=== PATIENT | female | born 1960 | race Caucasian/White ===

== ENCOUNTER 2018-01-09 08:50 | Emergency (ER) | payer BC ==
[~2018-01-09] VITALS: Ht 157.5 cm; Wt 104.3 kg
--- NOTE | ~2018-01-09 | EKG ---
[address] [address] [place] [address] ELECTROCARDIOGRAM REPORT Name: KANDI MARTELENE Bridget Room #: [facility]P [facility]#: [id number] Admission: 01/09/18 Attend Phys: Discharge: 01/09/18 Date of : 64 Report #: [id number] THIS REPORT FOR: //name// [facility] ED Test Date: 2018-01-09 Test Time: 10:22:59 Pat Name: NIKKI MARTE Department: Room: Gender: F [employer]: [facility] : 1960 Requested By: Myra Dick Order Number: [id number] MD: Andrei Dobbs Measurements Intervals [place] Rate: 87 P: 44 WY: 165 QRS: -6 QRSD: 104 T: 15 QT: 410 QTc: 494 Interpretive Statements Sinus rhythm Ventricular ectopics unifocal frequent Early transition Non specific ST/T wave changes No previous ECG available for comparison Electronically Signed On 01-09-2018 13:05:32 [employer] by Andrei Dobbs [email or web address] <ELECTRONICALLY SIGNED> By: Andrei Dobbs MD 01/09/18 1305 1022 [facility] Andrei Dobbs MD /ROBERT
[2018-01-09] MEDS ORDERED: ESTRADIOL 1 MG T1 M1 PO (09:23)
[2018-01-09] MEDS ORDERED: EFFEXOR XR37.5 MG PO (09:23)
[2018-01-09] MEDS ORDERED: PROGESTERONE100 MG PO (09:23)
[2018-01-09] MEDS ORDERED: METFORMIN HCL500 MG PO (09:24)
[2018-01-09] MEDS ORDERED: COZAAR 25 MG TA25 M1 PO (09:24)
[2018-01-09] MEDS ORDERED: HYDROCHLOROTHIA25 M2 PO (09:24)
[2018-01-09 09:28] LABS: HEMOGLOBIN 13.2 gm/dL (12.0-15.0); MCH 32.1 pg (26.0-34.0); MCHC 34.7 g/dL (28.0-37.0); MCV 92.7 fL (80.0-100.0); PLATELET COUNT 361 thou/uL (150-400); RDW 12.8 % (10.5-14.5); WBC 9.8 thou/uL (4.0-11.0)
[2018-01-09 09:35] LABS: ANION GAP 8 mmol/L (7-16); BUN 14 mg/dL (7-18); CHLORIDE 106 mmol/L (98-107); CO2 28 mmol/L (21-32); CREATININE 0.6 mg/dL (0.6-1.0); GLUCOSE 108 mg/dL (74-106); POTASSIUM 3.8 mmol/L (3.5-5.1); SODIUM 142 mmol/L (136-145)
[2018-01-09 09:44] LABS: ALBUMIN 3.5 g/dL (3.4-5.0); SGOT 31 U/L (15-37); SGPT 57 U/L (30-65); TOTAL BILIRUBIN 0.2 mg/dL (<0.1-1.0); TOTAL PROTEIN 7.2 g/dL (6.4-8.2); TROPONIN-I <0.06 ng/mL (<0.06)
[2018-01-09 09:53] LABS: ABSOLUTE NEUTROPHILS 5.7 thou/uL (1.4-8.2); PLATELET ESTIMATE NORMAL
[2018-01-09] MEDS ORDERED: ALBUTEROL2.5 MG/31 INH (10:17)
[2018-01-09] MEDS ORDERED: PROMETH-CODEIN 65 ML PO (10:17)
[2018-01-09] MEDS ORDERED: MEDROLDOSEPACK PO (10:17)
[2018-01-09 10:56] VITALS: BP 154/72
== END 2018-01-09 11:17 | disposition home or self-care (01) ==
LOC: ER 08:50
PROVIDERS: Physician Assistant
DX: J40 Bronchitis, not specified as acute or chronic (principal); I10 Essential (primary) hypertension; E78.00 Pure hypercholesterolemia, unspecified; Z88.1 Allergy status to other antibiotic agents; Z88.8 Allergy status to other drugs, medicaments and biological substances